=== PATIENT | male | born 1975 | race Two or more races ===

== ENCOUNTER 2017-12-22 13:52 | Emergency (ER) | payer SELFPAY ==
[2017-12-22 14:59] LABS: BILIRUBIN,URINE NEGATIVE (NEG); CLARITY,URINE TURBID; COLOR,URINE YELLOW; GLUCOSE,URINE NEGATIVE (NEG); NITRITE,URINE NEGATIVE (NEG); PH,URINE 5.5; PROTEIN,URINE NEGATIVE (NEG-TRACE); UROBILINOGEN,URINE 0.2 mg/dL (0.2 mg/dL)
[2017-12-22] MEDS ORDERED: IOHEXOL 300 MG/ML 100ML VIAL. IV (15:00)
[2017-12-22 15:10] LABS: BARBITURATES NEG (NEG); BENZODIAZEPINES NEG (NEG); CANNABINOIDS NEG (NEG); COCAINE NEG (NEG); METHADONE NEG (NEG); OPIATES NEG (NEG); PHENCYCLIDINE NEG (NEG)
[2017-12-22 15:15] LABS: BACTERIA,URINE 0 /HPF (0-FEW); WBC,URINE RARE /HPF (0-4)
[2017-12-22] MEDS ORDERED: CONTRAST GIVEN MC (15:15)
[2017-12-22 15:16] LABS: AMPHETAMINE/METHAMPHETAMINE NEG (NEG); ETHANOL, URINE NEG (NEG); RBC,URINE OCC /HPF (0-2)
[2017-12-22] MEDS: fentaNYL PF VIAL 100 MCG/2 ML VIAL IV (15:19)
[2017-12-22] MEDS: ONDANSETRON PF 4 MG/2 ML VIAL. IV (15:20)
[2017-12-22 15:23] LABS: BASO % 0 % (0-3); EOS % 0 % (0-3); HEMATOCRIT 48.4 % (39.0-53.0); HEMOGLOBIN 15.9 g/dL (13.0-17.5); LYMPH % 7 % (24-48); MEAN CORPUSCULAR HEMOGLOBIN 26 pg (25-35); MEAN CORPUSCULAR HGB CONC 33 g/dL (31-37); MEAN CORPUSCULAR VOLUME 79 fL (79-100); MONO # 0.5 x10^3/uL (0.0-1.1); MONO % 3 % (0-9); NEUT % 90 % (31-73); PLATELET COUNT 338 x10^3/uL (140-400); RED BLOOD COUNT 6.17 x10^6/uL (4.30-5.70); RED CELL DISTRIBUTION WIDTH 14.3 % (11.5-14.5); WHITE BLOOD COUNT 14.5 x10^3/uL (4.0-11.0)
[2017-12-22] MEDS: IV NORMAL SALINE 1000ML BAG 1,000 ML IV (15:23)
[2017-12-22 15:26] LABS: ADD MAN DIFF? YES
[2017-12-22 15:27] LABS: ANION GAP 10 (6-14); BLOOD UREA NITROGEN 24 mg/dL (8-26); BUN/CREATININE RATIO 22 (6-20); CALCIUM 9.4 mg/dL (8.5-10.1); CARBON DIOXIDE 29 mmol/L (21-32); CHLORIDE 99 mmol/L (98-107); CREATININE 1.1 mg/dL (0.7-1.3); GFR 73.1; GLUCOSE 127 mg/dL (70-99); POTASSIUM 3.6 mmol/L (3.5-5.1); SODIUM 138 mmol/L (136-145)
[2017-12-22 15:28] LABS: ETHANOL < 10 mg/dL (0-10)
[2017-12-22 15:33] LABS: ALBUMIN 4.2 g/dL (3.4-5.0); ALBUMIN/GLOBULIN RATIO 1.1 (1.0-1.7); ALK PHOS 75 U/L (46-116); ALT (SGPT) 31 U/L (16-63); AST (SGOT) 14 U/L (15-37); LIPASE 92 U/L (73-393); TOTAL PROTEIN 8.2 g/dL (6.4-8.2)
[2017-12-22 16:14] LABS: AGAP ISTAT 15 mmol/L (6-14); BUN ISTAT 25 mg/dL (8-26); CHLORIDE ISTAT 99 mmol/L (98-110); GLUCOSE ISTAT 119 mg/dL (70-99); HEMATOCRIT ISTAT 50 % (37-52); ION CA ISTAT 1.14 mmol/L (1.13-1.32); POTASSIUM ISTAT 3.6 mmol/L (3.5-5.0); SODIUM ISTAT 138 mmol/L (135-145); TOT CO2 ISTAT 28 mmol/L (23-32)
[2017-12-22] MEDS ORDERED: fentaNYL PF VIAL 100 MCG/2 ML VIAL IV (16:15)
[2017-12-22] MEDS ORDERED: TAMSULOSIN 0.4 MG CAP.ER.24H. PO (16:15)
[2017-12-22 16:36] LABS: % BANDS 1 % (0-9); % LYMPHS 8 % (24-48); % SEGS 91 % (35-66); PLT ESTIMATE ADEQUATE (ADEQUATE)
[2017-12-22] MEDS: KETOROLAC 30 MG/ML INJ. IV (16:50)
== END 2017-12-22 16:58 | disposition home or self-care (01) ==
LOC: ER 16:58
DX: N20.0 Calculus of kidney (principal)
CPT/HCPCS: 36415; 74176; 80047; 80053; 80307; 81001; 83690; 85007; 85025; 96361; 96374; 96375; 99285-25; G0480; J1885; J2405; J3010; J7030